=== PATIENT | female | born 1945 | race Caucasian/White ===

== ENCOUNTER 2016-12-04 08:39 | Day surgery (SDC) | payer MEDICARE ==
[~2016-12-04] VITALS: Ht 156.2 cm; Wt 59.1 kg
[2016-12-04] VITALS (7 sets, daily range): BP systolic 112–163; BP diastolic 56–84; PULSE 67–80; RESP 17–22; TEMP 97.1–97.9; O2SAT 95–98
[2016-12-04] MEDS ORDERED: SODIUM CHLOR 0.9% 1000 ML INJ 1,000 ML IV SCH (09:15)
[2016-12-04] MEDS ORDERED: ADVA115A INH (09:34)
[2016-12-04] MEDS ORDERED: VENTAER INH (09:35)
[2016-12-04] MEDS ORDERED: LOSA50TA PO (09:35)
[2016-12-04] MEDS ORDERED: ALPR.25 PO (09:36)
[2016-12-04] MEDS ORDERED: CO-QCAP PO (09:37)
[2016-12-04] MEDS ORDERED: VITA10004 PO (09:37)
[2016-12-04] MEDS ORDERED: VITA10003 PO (09:38)
[2016-12-04] MEDS ORDERED: SACC1CAP3 PO (09:38)
[2016-12-04] MEDS ORDERED: VITA10006 PO (09:39)
[2016-12-04] MEDS ORDERED: LIDOCAINE 1%/EPINEPHrine 1:100,000 SOLN 20 ML VIAL ONE (10:00)
[2016-12-04] MEDS ORDERED: SODIUM BICARB 8.4% (PED) INJ 10 MEQ/10 ML SYR ONE (10:01)
[2016-12-04] MEDS ORDERED: MIDAZOLAM HCL 5 MG/5 ML VIAL ONE (10:46)
[2016-12-04] MEDS ORDERED: fentaNYL CITRATE 250 MCG/5 ML AMP ONE (10:46)
[2016-12-04] MEDS ORDERED: GELATIN 12 MM/7 MM FOAM ONE (10:49)
[2016-12-04] MEDS ORDERED: THROMBIN (TOPICAL) 5,000 UNIT VIAL ONE (10:56)
--- NOTE | 2016-12-04 16:38 | RADRPT ---
EXAM DATE/TIME: 12/04/2016 10:49 [place] COMPARISON: No previous studies available for comparison. INDICATIONS : Liver mass. SEDATION TIME: 20 minutes BIOPSY SITE: liver MEDICATION(S): 1.) 4 mg fentanyl (Sublimaze) IV 2.) 200 mcg fentanyl (Sublimaze) IV DEVICE(S): 1.) 18 gauge Chaves blunt needle 10cm 2.) 20 gauge Temno core biopsy needle 20cm MEDICAL HISTORY : Carcinoma, breast. Hypertension. Smoker SURGICAL HISTORY : None. ENCOUNTER: Initial ACUITY: 1 day PAIN SCORE: 0/10 LOCATION: abdomen A total of three core specimen(s) were obtained and sent to the laboratory for pathologic evaluation. PROCEDURE: 1. CT guided liver biopsy. 2. Conscious sedation with continuous EKG and oximetry monitoring. Prior to the procedure informed consent was obtained. Any appropriate prior imaging studies were rev iewed. Using automated exposure control and adjustment of the mA and/or kV according to patient size, radiat ion dose was kept as low as reasonably achievable to obtain optimal diagnostic quality images. The site was prepped in a sterile fashion. Full sterile technique was used, including cap, mask, yariel rile gloves and gown and a large sterile sheet. Hand hygiene and 2% chlorhexidine and/or betadine/al cohol prep was utilized per protocol for cutaneous antisepsis. The skin and subcutaneous tissues wer e infiltrated with local anesthetic solution. With CT guidance the previously identified target was localized. 3 cores were obtained. Tract was e mbolized with Gelfoam and thrombin. Follow-up CT scan reveals no hemorrhage. The patient tolerated the procedure well and there were no complications. The patient was returned to the Radiology Outpatient Unit in stable condition. CONCLUSION: Uncomplicated CT guided biopsy. Indio Borjas MD FACR on December 04, 2016 at 16:36 Board Certified Radiologist. This report was verified electronically.
[2016-12-13] MEDS ORDERED: ADVA100A INH (12:18)
[2016-12-13] MEDS ORDERED: VITA200C3 PO (12:19)
[2016-12-13] MEDS ORDERED: CO Q100C9 PO (12:22)
[2016-12-13] MEDS ORDERED: VITA100018 PO (12:23)
== END 2016-12-04 14:10 | disposition home or self-care (01) ==
LOC: HRAD 08:39 → HRIP 08:40 → HRAD 14:10
PROVIDERS: ATTEND Surgery
DX: C22.7 Other specified carcinomas of liver (principal); I10 Essential (primary) hypertension; F17.200 Nicotine dependence, unspecified, uncomplicated; Z85.3 Personal history of malignant neoplasm of breast; Z88.2 Allergy status to sulfonamides; Z88.8 Allergy status to other drugs, medicaments and biological substances
CPT/HCPCS: 47000; 77012; 88307; 88333; 88341; 88342; J2250; J3010

== ENCOUNTER 2016-12-13 14:59 | Observation (INO) | payer MEDICARE ==
[~2016-12-13] VITALS: Ht 156.2 cm; Wt 60.9 kg
[~2016-12-13 14:59] MED LIST: ADVA100A INH; ALPR.25 PO; CO Q100C9 PO; LOSA50TA PO; VENTAER INH; VITA100018 PO; VITA10004 PO; VITA200C3 PO
[2016-12-17] MEDS: CHLORHEXIDINE GLUCONATE 2 % 1 PACK (2 CLOTHS) TOPICAL PRN ×2 (06:45→08:30)
[2016-12-17 06:50] VITALS: BP 161/75; PULSE 84; RESP 20; TEMP 98.5; O2SAT 98
[2016-12-17] MEDS ORDERED: SODIUM CHLORID 0.9% 500 ML IV PRN (08:00)
[2016-12-17] MEDS ORDERED: INSULIN HUMAN REGULAR 1,000 UNITS/10 ML VIAL SQ PRN (08:00)
[2016-12-17] MEDS ORDERED: LACTATED RINGER'S 1000 ML IV PRN (08:00)
[2016-12-17] MEDS ORDERED: METOPROLOL TARTRATE 25 MG TAB PO PRN (08:00)
[2016-12-17] MEDS ORDERED: ceFAZolin 2 GM PREMIX 50 ML IV SCH (08:15)
[2016-12-17] MEDS ORDERED: ACETAMINOPHEN 1000 MG/100 ML VIAL IV SCH (08:15)
[2016-12-17] MEDS ORDERED: MIDAZOLAM HCL 2 MG/2 ML VIAL ONE (10:52)
[2016-12-17] MEDS ORDERED: FAMOTIDINE 20 MG/2 ML VIAL ONE (10:52)
[2016-12-17] MEDS ORDERED: BUPIVACAINE/EPINEPHRINE 0.25% PF 10 ML VIAL INFIL ONE (11:43)
[2016-12-17] MEDS ORDERED: ONDANSETRON HCL 4 MG/2 ML VIAL IV PUSH ONE (12:00)
[2016-12-17] MEDS ORDERED: PROPOFOL 200 MG/20 ML AMP IV ONE (12:00)
[2016-12-17] MEDS ORDERED: BUPIVACAINE LIPOSOME PF 1.3% 20 ML VIAL INFIL ONE (12:00)
[2016-12-17] MEDS ORDERED: NEOSTIGMINE 3 MG/3 ML SYR IV ONE (12:00)
[2016-12-17] MEDS ORDERED: LACTATED RINGER'S 1000 ML INJ 1,000 ML IV ONE (12:00)
[2016-12-17] MEDS ORDERED: fentaNYL CITRATE 250 MCG/5 ML AMP ONE (12:56)
[2016-12-17] MEDS ORDERED: *MEPERIDINE 25 MG INJ VIAL PERIprocedural Use ONLY ONE (13:00)
[2016-12-17] MEDS ORDERED: DO NOT ADM ANY ANTICOAGULANT DRUGS PRN (13:15)
--- NOTE | 2016-12-17 15:40 | PD.OP ---
cc: Damir Truong MD Operative Report Date of Surgery: December 17, 2016 Preoperative Diagnosis: Right hepatic lobe lesion and umbilical mass Postoperative Diagnosis: Right hepatic lobe lesion and umbilical mass; multiple peritoneal implants Procedure: Diagnostic laparoscopy; aspiration of fluid for cytology; excision of umbilical mass with primary closure Anesthesia: General endotracheal Surgeon: Damir Truong Delinquent Tax [employer]or Assistant(s): Veronica Aly MS3 Operation and Findings: Operative findings: Patient was found to have less than 100 mL's of bloody appearing fluid within the peritoneal cavity. She was also seen to have multiple apparent tumor implants along the right hemidiaphragm lateral peritoneum and anterior surface the right lobe of the liver in addition to several omental areas of caking as well as other areas of studding. There is no evidence of umbilical hernia. Operative procedure: The patient is brought to the operating room, and after satisfactory general endotracheal anesthesia obtained the abdomen was prepped and draped in usual sterile fashion. In the left upper quadrant 1.3% Exparel was used to straight skin for local anesthesia. Small incision was made and a 5 mm trochars inserted directly into the peritoneal cavity under visualization. The abdomen was then distended 15 mmHg using carbon dioxide. This will injury was inspected for, with none being identified. The peritoneal cavity was then inspected and several pictures were taken to include the apparent 2 separate tumors in the right lobe of the liver as well as superficial studding on the anterior surface of the liver, as well as the findings of the diaphragm peritoneal surface and omentum. After it was ascertained that the patient does not have an umbilical hernia is decided to proceed with excision of the umbilical mass which was causing pain. The carbon dioxide was vented as completely as possible the atmosphere and the 5 mm port was withdrawn. An elliptical skin incision was then marked with a sterile pen around the umbilicus. A transverse ellipse was then made sharply and carried out through the subcutaneous cutaneous tissue the cautery being used for hemostasis. Incision was deepened to the fascia and the mass was seen to involve the umbilicus as well as the umbilical stalk down to the fascia. An area fascia was excised on either side to obtain free margins. Peritoneal cavity was necessarily entered during this portion of the procedure and the mass was seen to involve the peritoneal surface. It was then sent for permanent pathology. The perineal cavity was then gently palpated through this relatively small defect and multiple areas of omental caking were identified. No intraperitoneal tumor was biopsied. The fascia was then closed in a single layer of interrupted #1 PDS suture. Hemostasis was checked for and found be satisfactory. Extensive infiltration surrounding tissues was undertaken with 20 mL's of 1.3% Exparel mixed with 30 mL's of 0.25% Marcaine for local anesthesia. The skin was then closed with a running 4-0 PDS subcuticular stitch. The single 5 mm port sites closed with interrupted 4-0 PDS subcutaneous stitches. Steri-Strips were then applied the patient was then awakened taken from the operating room in satisfactory condition having tolerated procedure well. Estimated blood loss was less than 10 mL's. The instrument, sponge, and needle counts were reported as being correct 2 at the end of the procedure. Damir Truong MD December 17, 2016 15:40
[2016-12-17] MEDS ORDERED: METOCLOPRAMIDE HCL 10 MG/2 ML VIAL IV PRN (15:45)
[2016-12-17] MEDS ORDERED: BISACODYL EC 5 MG TABEC PO PRN (15:45)
[2016-12-17] MEDS ORDERED: diphenhydrAMINE HCL 25 MG CAP PO PRN (15:45)
[2016-12-17] MEDS ORDERED: NALOXONE HCL 0.4 MG/ML AMP IV PRN (15:45)
[2016-12-17] MEDS ORDERED: ONDANSETRON HCL 4 MG/2 ML VIAL IV PRN (15:45)
[2016-12-17] MEDS ORDERED: HYDROmorphone HCL 2 MG TAB PO PRN (15:45)
[2016-12-17] MEDS ORDERED: LORazepam 2 MG/ML VIAL IVP PRN (15:45)
[2016-12-17] MEDS ORDERED: SODIUM CHLORIDE 0.9% FLUSH 10 ML FLUSH IV FLUSH PRN (15:45)
[2016-12-17] MEDS ORDERED: Post-op Orders (for Pharmacy) MISC XX ONE (15:45)
[2016-12-17] MEDS ORDERED: BISACODYL 10 MG SUPP RECTAL PRN (15:45)
[2016-12-17] MEDS ORDERED: D5-1/2 NS + KCL 20 MEQ INJ 1,000 ML IV SCH (16:30)
[2016-12-17 20:00] VITALS: BP 139/63; PULSE 71; RESP 17; TEMP 98.1; O2SAT 94
[2016-12-17] MEDS: MORPHINE SULFATE 4 MG/ML INJ IV PRN (20:33)
--- NOTE | 2016-12-17 20:34 | MB ---
cc: DR. MICHAEL WASHBURN,DAMIR PARADA,ALEX Martin M.D. DATE OF CONSULTATION 12/17/2016 New patient consultative summary DATE OF 1945 DATE OF SERVICE 12/17/[address] Damir Truong CHIEF COM[address] Truong requested consultation for Mrs. Carpenter regarding diagnosis of adenocarcinoma of unknown primary. HISTORY OF PRESENT ILLNESS Mrs. Carpenter is a 71-year-old woman recently . She was working in her garden and she felt something pull. She developed an abdominal hernia. Concurrent to this her primary physician was concerned about her hypercholesterolemia. Apparently an ultrasound was performed that showed an abnormality in the liver. She did not have cause for worry as she has a history of liver cyst. Ultimately an MRI of the abdomen with and without contrast was performed on October 04, 2016 to followup that ultrasound abnormality. The results of the ultrasound were not available during the consultation. The MRI showed a few benign cysts in the right hepatic lobe. Segment four of the liver is filled with large multicystic or cystic mass that could be saccular dilatation mixed with cystic change of the parenchyma which is nonspecific. Differential include duct neoplasm, clear enhancing mass was not identified. Radiology remarks that this does not have the typical appearance for hemangioma. The spleen, the pancreas and the adrenals are unremarkable. She remains concerned about her hernia. She has developed some pain in the abdomen related to the hernia. CT scan of the abdomen with and without contrast was performed November 08, 2016. CT scan shows a complex enhancing mass within the medial segment of the left lobe of the liver measuring 5.8 x 6.9 x 6.6 cm. There is a solid portion of the lesion. Percutaneous biopsy of lesion could be performed. There is also an enhancing umbilical mass measuring 3.0 x 2.3 cm. Radiology also recommends a PET scan would be helpful. There is multiple bilateral renal cysts and tiny right lobe hepatic cyst. She was referred to surgery for presumed incarcerated hernia. Dr. Truong coordinated CT PET scan on November 27, 2016. The findings shows left hepatic lobe mass is highly suspicious for malignancy, possible cholangiocarcinoma should be excluded. There is subtle focal uptake in the periphery of the right hepatic lobe without any definite lesion. On a CT scan there is a prominent subcutaneous soft tissue density underneath umbilicus which demonstrates moderate uptake measuring 2.2 cm which is thought to be pediculitis. She underwent a CT-guided liver biopsy in 12/04/2016 that shows a moderately differentiated adenocarcinoma. The tumor cells are reactive for CAM 5.2 and cytokeratin 7. There is no significant reactivity for cytokeratin 20, estrogen receptor, GCDFP-15, or mammaglobin. The findings represent a neoplasm of pancreatobiliary origin or metastatic disease. She was admitted today for the umbilical hernia. She had a diagnostic laparoscopy, aspiration of fluid for cytology, excision of umbilical mass with primary closure. She is postop in the hospital room. She has some abdominal distension. She is accompanied by a friend. Hematology/Oncology is consulted to discuss the above findings and further recommendations. PAST MEDICAL HISTORY 1. Hypercholesterolemia. 2. 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 3. Tejada's disease. 4. Chronic obstructive pulmonary disease. PAST SURGICAL HISTORY 1. Bilateral tubal ligation. 2. Biopsy of skin lesion. SOCIAL HISTORY She continues to smoke. Denies any alcohol or illicit drug use. FAMILY HISTORY Significant for father with cancer, now . ALLERGIES IODINE, SULFA, HYDROCODONE, LEVAQUIN. PHYSICAL EXAMINATION VITAL SIGNS: Temperature 97.7 heart rate 67, respiratory rate 17, blood pressure 129/59, saturation 93%. GENERAL: Ms. Carpenter is a well-developed, well-nourished woman who looks her stated age. HEENT: Her pupils are round and reactive to light and accommodation. Oropharynx is clear. NECK: Supple with no adenopathy. LUNGS: Clear to auscultation. CARDIOVASCULAR: Exam reveals normal rate, rhythm. ABDOMEN: Distended. Smooth. There is Steri-Strips, dry dressing over the umbilical hernia and there is some distension in the right side in the abdomen. EXTREMITIES: Lower extremities with no edema. NEUROLOGIC: Exam is nonfocal. LABORATORY DATA No labs available during the consultation. ASSESSMENT/PLAN Mrs. Carpenter is a 71-year-old woman with history of COPD, hypertension, Tejada's disease presenting with umbilical hernia / abdominal wall mass. Lengthy discussion with Mrs. Carpenter, the above findings and the liver biopsy shows moderately differentiated adenocarcinoma. Primary is unknown. As discussed with Dr. Truong the peritoneal implants and the omental implant suggests a gynecologic type tumor. Tumor markers were apparently performed and CA 19.9 is elevated. We will review those results. We discussed the differential diagnosis to include that of gynecologic primary, pancreatobiliary suggested by the liver biopsy and pathology and lastly colon cancer. Her normal colonoscopy three or four years ago argues against a colon cancer. Her history of smoking and a negative CT scan of the chest argues against a lung cancer. She has no prior history of breast cancer. The breast was benign on the CT PET scan. Furthermore the adenocarcinoma was negative for estrogen receptor. We discussed possibility using cancer plaques or genetic study to identify the tissue origin. This may be helpful in targeted therapy. Mrs. Carpenter watched her receive multiple cycles of chemotherapy and does not want that for herself. We discussed trying to find a targeted agent or checkpoint inhibitors which sounds acceptable to her. The targeted agent would come pending on the type of mutation that is identified by these mutation analysis labs. We will coordinate this an outpatient basis. In the next week or two she will be healing from the laparoscopic surgery. Her questions were answered to her satisfaction. MD DEA Nelson/STELLA /7:25 PM /8:05 PM
[2016-12-17] MEDS: SODIUM CHLORIDE 0.9% FLUSH 10 ML FLUSH IV FLUSH SCH (20:35)
[2016-12-17] MEDS: DOCUSATE SODIUM 100 MG CAP PO SCH (20:35)
[2016-12-17] MEDS ORDERED: ZOLPIDEM TARTRATE 5 MG TAB PO PRN (21:00)
[2016-12-18] VITALS: BP 135/61; PULSE 67; RESP 16; TEMP 99.8; O2SAT 97
[2016-12-18] MEDS: MORPHINE SULFATE 4 MG/ML INJ IV PRN ×2 (04:09→08:21)
[2016-12-18 08:00] VITALS: BP 159/67; PULSE 83; RESP 18; TEMP 98.7; O2SAT 93
[2016-12-18] MEDS: DOCUSATE SODIUM 100 MG CAP PO SCH (08:21)
[2016-12-18] MEDS: SODIUM CHLORIDE 0.9% FLUSH 10 ML FLUSH IV FLUSH SCH (08:23)
--- NOTE | 2016-12-18 10:34 | PD.ONC.PN ---
Subjective Subjective Remarks Afebrile overnight. Patient resting comfortably in room. She has some mild abdominal discomfort post-surgery. She is hoping to go home today. Objective Data Date Time Temp Pulse Resp B/P Pulse Ox O2 Delivery O2 Flow Rate FiO2 12/18/16 08:00 98.7 83 18 159/67 93 12/18/16 00:00 99.8 67 16 135/61 97 12/17/16 20:00 98.1 71 17 139/63 94 12/17/16 20:00 98.1 71 17 139/63 94 12/17/16 18:49 21 12/17/16 16:00 97.7 67 17 129/59 93 Room Air 12/17/16 15:00 61 14 119/57 92 Room Air 12/17/16 14:30 63 18 116/58 92 Room Air 12/17/16 14:00 62 13 129/58 100 Nasal Cannula 2 12/17/16 13:45 56 22 119/58 100 Nasal Cannula 2 12/17/16 13:30 61 14 128/62 100 Nasal Cannula 2 12/17/16 13:15 65 12 125/59 100 Nasal Cannula 2 12/17/16 13:00 67 15 156/75 100 Nasal Cannula 2 12/17/16 12:48 97.5 91 12 160/71 100 Nasal Cannula 2 Administered Medications Medications (Trade) Dose Ordered Sig/Stephanie Route PRN Reason Start Time Stop Time Status Last Admin Dose Admin Potassium Chloride/Dextrose/ Sod Cl (D5-1/2 NS + KCl 20 Meq Inj) 1,000 ml @ 42 mls/hr [id number] IV 12/17/16 16:30 12/17/16 16:30 Docusate Sodium (Colace) 100 mg BID PO 12/17/16 21:00 12/18/16 08:21 Morphine Sulfate (Morphine Inj) 2 mg Q1HR PRN IV PAIN SCALE 1 TO 5 12/17/16 15:45 12/18/16 08:21 Hydromorphone HCl (Dilaudid) 2 mg Q4H PRN PO PAIN SCALE 1 TO 5 12/17/16 15:45 12/17/16 16:39 Objective Remarks GENERAL: Middle aged female, sitting up in bed in nad. SKIN: Warm and dry. HEAD: Normocephalic. EYES: No scleral icterus. No injection or drainage. NECK: Supple, trachea midline. CARDIOVASCULAR: Regular rate and rhythm RESPIRATORY: Breath sounds equal bilaterally. No accessory muscle use. GASTROINTESTINAL: Abdomen soft, mildly distended, steri-strips in place are clean. EXTREMITIES: No cyanosis, or edema. NEUROLOGICAL: No obvious focal deficit. Awake, alert, and oriented x3. Assessment/Plan Problem List: (1) Adenocarcinoma of unknown primary Status: Acute Plan: --plan for follow up outpatient CT abdomen, November 08, 2016. ++complex enhancing mass within the medial segment of the left lobe of the liver measuring 5.8 x 6.9 x 6.6 cm. There is a solid portion of the lesion. There is also an enhancing umbilical mass measuring 3.[address] PET, November 27, 2016. ++ left hepatic lobe mass highly suspicious for malignancy , possible cholangiocarcinoma should be excluded. There is subtle focal uptake in the periphery of the right hepatic lobe without any definite lesion. On a CT scan there is a prominent subcutaneous soft tissue density underneath umbilicus which demonstrates moderate uptake measuring 2.2 cm which is thought to be pediculitis. CT-guided liver biopsy, 12/04/2016 that shows a moderately differentiated adenocarcinoma. The tumor cells are reactive for CAM 5.2 and cytokeratin 7. There is no significant reactivity for cytokeratin 20, estrogen receptor, GCDFP-15, or mammaglobin. The findings represent a neoplasm of pancreatobiliary origin or metastatic disease. --Primary is unknown. the peritoneal implants and the omental implant suggests a gynecologic type tumor. Tumor markers were apparently performed and CA 19.9 is elevated. --differential diagnosis to include that of gynecologic primary, pancreatobiliary suggested by the liver biopsy and pathology and lastly colon cancer. Her normal colonoscopy three or four years ago argues against a colon cancer. Her history of smoking and a negative CT scan of the chest argues against a lung cancer. She has no prior history of breast cancer. The breast was benign on the CT PET scan. Furthermore the adenocarcinoma was negative for estrogen receptor. Assessment 71y/o female with diagnosis of adenocarcinoma of unknown primary. Admitted for umbilical hernia-- diagnostic laparoscopy, aspiration of fluid for cytology, excision of umbilical mass with primary closure. h/o Hypercholesterolemia. Tejada's disease. Chronic obstructive pulmonary disease Plan 1. followed up with patient to review discussion held with Dr. Sumner yesterday. Questions answered. discussed following up in clinic after healed from surgery. Patient will call to make an appointment. Kenzie Hartley December 18, 2016 10:33
[2016-12-18 12:00] VITALS: BP 150/67; PULSE 63; RESP 17; TEMP 97.4; O2SAT 92
--- NOTE | 2016-12-18 13:23 | HHI.PR ---
Subjective Subjective Notes The patient has had significant pain in the incision site which is been controlled by morphine. Oral Dilaudid has not been as effective. No other complaints. She has been out of bed but has had little flatus. No N/V Objective Vitals/I&O Vital Signs Date Time Temp Pulse Resp B/P Pulse Ox O2 Delivery O2 Flow Rate FiO2 12/18/16 12:00 97.4 63 17 150/67 92 12/17/16 18:49 21 12/17/16 16:00 Room Air 12/17/16 14:00 2 Cardiovascular: Regular Lungs: Clear Abdomen: Non-distended, Post-op tenderness Extremities: No edema A/P Assessment and Plan S/P excision of umbilical mass (c/w metastatic lesion); doing fairly well. Will D/C today and see her back in the office in 10-14 days. She will also follow up with Dr. Love. Damir Truong MD December 18, 2016 13:23
== END 2016-12-18 13:49 | disposition home or self-care (01) ==
LOC: HSDI 12-17 06:43 → INTOOBSV 12-17 06:43 → N07B 12-17 16:33
PROVIDERS: ADMIT Surgery; ATTEND Surgery
DX: C49.4 Malignant neoplasm of connective and soft tissue of abdomen (principal); C78.7 Secondary malignant neoplasm of liver and intrahepatic bile duct; I10 Essential (primary) hypertension; J44.9 Chronic obstructive pulmonary disease, unspecified; K21.9 Gastro-esophageal reflux disease without esophagitis; E78.00 Pure hypercholesterolemia, unspecified; F17.200 Nicotine dependence, unspecified, uncomplicated; F41.8 Other specified anxiety disorders; Z85.3 Personal history of malignant neoplasm of breast; Z88.5 Allergy status to narcotic agent; Z88.1 Allergy status to other antibiotic agents; Z88.2 Allergy status to sulfonamides; Z85.828 Personal history of other malignant neoplasm of skin; Z86.010 Personal history of colon polyps
CPT/HCPCS: 22900; 49320; 88112; 88305; 88307; 88341; 88342; C9290; J0131; J2175; J2250; J2270; J2405; J2710; J3010; J3480; J7120; G0378